=== PATIENT | male | born 1975 | race Caucasian/White ===

== ENCOUNTER 2021-10-08 18:35 | Emergency (ER) | payer SELFPAY ==
[~2021-10-08] VITALS: Ht 172.7 cm; Wt 90.3 kg
[~2021-10-08 18:35] MED LIST: KETOROLAC TROME10 MG PO; MACROBID 100 M100 MG PO; ULTRAM50 MG PO; ZOFRAN ODT4 MG SL
[2021-10-08] MEDS ORDERED: ONDANSETRON HCL INJ 2MG/ML 2ML 2 MG/ML VIAL IV STA (18:49)
[2021-10-08] MEDS ORDERED: ONDANSETRON HCL INJ 2MG/ML 2ML 2 MG/ML VIAL ONE (18:58)
[2021-10-08] MEDS ORDERED: SODIUM CHLORIDE 0.9% 1000ML 1,000 ML ONE (18:59)
[2021-10-08] MEDS ORDERED: HALOPERIDOL LACTATE 5 MG/ML VIAL IV ONE (19:00)
[2021-10-08] MEDS ORDERED: SODIUM CHLORIDE 0.9% 1000ML 1,000 ML IV ONE (19:00)
[2021-10-08] MEDS ORDERED: SODIUM CHLORIDE 0.9% IV ONE (19:00)
[2021-10-08 19:02] LABS: BASOPHILS % 0.4 % (0.0-1.0); EOSINOPHILS % 0.3 % (0.0-6.0); HEMATOCRIT 47.2 % (38.2-49.6); HEMOGLOBIN 15.7 g/dL (14.0-18.0); LYMPHOCYTES # (AUTO) 0.9 (1.0-3.2); LYMPHOCYTES % 12.8 % (18.0-39.1); MEAN CORPUSCULAR HGB CONC 33.3 g/dL (31-35); MEAN CORPUSCULAR VOLUME 96.3 fL (81-99); MONOCYTES # (AUTO) 0.3 (0.2-0.8); MONOCYTES % 4.5 % (4.4-11.3); NEUTROPHILS # (AUTO) 5.8 (2.1-6.9); NEUTROPHILS % 81.9 % (38.7-80.0); PLATELET COUNT 251 x10e3/uL (140-360); RED CELL DISTRIBUTION WIDTH 13.5 % (11.7-14.4)
[2021-10-08 19:19] LABS: ALBUMIN 4.1 g/dL (3.5-5.0); ALBUMIN/GLOBULIN RATIO 1.1 (0.8-2.0); ANION GAP 19.4 mmol/L (8-16); CREATININE, SERUM 0.78 mg/dL (0.72-1.25); POTASSIUM 3.4 mmol/L (3.5-5.1)
[2021-10-08 19:31] LABS: CLARITY,URINE HAZY (CLEAR); COLOR,URINE YELLOW (YELLOW)
[2021-10-08 19:32] LABS: KETONES,URINE >=160 (NEGATIVE); LEUKOCYTE ESTERASE ,URINE NEGATIVE (NEGATIVE); NITRITE,URINE NEGATIVE (NEGATIVE); PROTEIN,URINE DIPSTICK 2+ (NEGATIVE)
[2021-10-08 19:33] LABS: AMPHETAMINES SCREEN,URINE NEGATIVE (NEGATIVE); BENZODIAZEPINES SCREEN,URINE NEGATIVE (NEGATIVE); PHENCYCLIDINE SCREEN,URINE NEGATIVE (NEGATIVE); URINE UROBILINOGEN 0.2 mg/dL (0.2 - 1)
[2021-10-08 19:36] LABS: BACTERIA,URINE FEW /HPF; EPITHELIAL CELLS,URINE FEW /LPF
[2021-10-08] MEDS ORDERED: FAMOTIDINE 20 MG/2 ML VIAL IV STA (20:22)
[2021-10-08] MEDS ORDERED: FAMOTIDINE 20 MG/2 ML VIAL IV ONE (20:24)
[2021-10-08] MEDS ORDERED: DIPHENHYDRAMINE HCL INJ 50 MG/ML VIAL IV ONE (20:30)
[2021-10-08] MEDS ORDERED: DIPHENHYDRAMINE HCL INJ 50 MG/ML VIAL ONE (20:33)
[2021-10-08] MEDS ORDERED: ONDANSETRON ODT4 MG PO (21:34)
== END 2021-10-08 21:55 | disposition home or self-care (01) ==
LOC: ER 18:38
DX: F11.23 Opioid dependence with withdrawal (principal); R11.10 Vomiting, unspecified; Z88.0 Allergy status to penicillin; Z87.442 Personal history of urinary calculi
CPT/HCPCS: 36415; 74176; 80053; 80307; 81001; 83690; 85025; 99284; J1200; J1630; J2405; J7030